=== PATIENT | male | born 1970 | race Asian ===

== ENCOUNTER 2018-01-20 18:33 | Emergency (ER) | payer OTHER ==
[~2018-01-20] VITALS: Ht 157.5 cm; Wt 59.0 kg
[2018-01-20 19:43] VITALS: BP 124/79
[2018-01-20] MEDS ORDERED: AMOX1TAB61 PO (20:56)
--- NOTE | 2018-01-20 20:56 | PHYS DOC ---
Past Medical History Past Medical History: No Pertinent History Past Surgical History: No Surgical History Alcohol Use: None Drug Use: None Adult General Chief Complaint Chief Complaint: COUGH HPI HPI Patient is a 47 year old male who presents to the emergency room today with complaints of a cough with some yellow mucus produced for the last 2 weeks. He also reports feeling hot, chills, body aches, and a sore throat. He denies any nausea or vomiting. Denies any medical or social history, he is not allergic to any medications and is not currently taking any medications Review of Systems Review of Systems Constitutional: Reports fatigue, hot flashes, and chills [] HENT: Reports nasal congestion, runny nose, and sore throat Respiratory: Denies shortness of breath or wheezing, reports productive cough with yellow sputum at times [] Cardiovascular: Denies chest pain GI: Denies abdominal pain, nausea, vomiting, or diarrhea [] Integument: Denies rash or skin lesions [] Neurologic: Denies focal weakness or sensory changes, reports headache and sinus pressure All other systems were reviewed and found to be within normal limits, except as documented in this note. Allergies Allergies Allergies Coded Allergies Type Severity Reaction Last Updated Verified No Known Drug Allergies 01/20/18 No Physical Exam Physical Exam Constitutional: Well developed, well nourished, no acute distress, non-toxic appearance. [] HENT: Normocephalic, atraumatic, bilateral external ears normal, oropharynx moist, thick yellow post nasal drainage. mild erythema of posterior pharynx, no oral exudates, nose normal. [] Eyes: PERRLA, EOMI, conjunctiva normal, no discharge, allergic shiners bilat [] Neck: Normal range of motion, no tenderness, supple, no stridor. [] Cardiovascular:Heart rate regular rhythm, no murmur [] Lungs & Thorax: Bilateral breath sounds clear to auscultation [] Skin: Warm, dry, no erythema, no rash. [] Extremities: No cyanosis, no clubbing, ROM intact, Neurologic: Alert and oriented X 3, normal motor function, normal sensory function, no focal deficits noted. [] Psychologic: Affect normal, judgement normal, mood normal. [] Current Patient Data Vital Signs Vital Signs Date Time Temp Pulse Resp B/P (MAP) Pulse Ox O2 Delivery O2 Flow Rate FiO2 01/20/18 19:43 98.3 88 20 124/79 (94) 97 Room Air 98.3 EKG EKG [] Radiology/Procedures Radiology/Procedures cxr negative read by Dr. Travis[] Course & Med Decision Making Course & Med Decision Making Pertinent Labs and Imaging studies reviewed. (See chart for details) Pt is a 47 year old male with complaints of a productive cough, tactile fever, chills, body aches, and sore throat. VSS, clinically he appears as sinusitis and allergic rhinitis. Treated as such. CXR negative. Prescription for augmentin 875 written and pt encouraged to take OTC allergy medication. Patient and verbalized an understanding of home care, medications, follow-up, and return to ED instructions and was in agreement with the plan of care. [] Dragon Disclaimer Dragon Disclaimer This electronic medical record was generated, in whole or in part, using a voice recognition dictation system. Departure Departure Impression: Primary Impression: Sinusitis, acute maxillary Additional Impression: Allergic rhinitis Disposition: HOME, SELF-CARE Condition: STABLE Referrals: UNKNOWN PCP NAME (PCP) Patient Instructions: Allergic Rhinitis, Sinusitis, [id number] Additional Instructions: Fill prescription(s) and use as directed. Recommend over the counter Claritin, Melody, or Zyrtec for relief of allergy symptoms. Cool mist humidifier in room at bedtime. Tylenol or ibuprofen prn pain/fever. Increase clear fluids. Avoid triggers such as smoke, fragrance, dust, and pollen. May take OTC cough suppressants as needed. Follow-up with your primary care doctor in 1-2 days, return to the emergency room if your symptoms worsen. Scripts Amoxicillin/Potassium Clav (AUGMENTIN 875-125 TABLET) 1 Each Tablet 1 TAB PO BID, #14 TAB Prov: LORETTA GAMBINO [employer] 01/20/18 Problem Qualifiers LORETTA GAMBINO [employer]UC[employer] TE[employer] Jan 20, 2018 20:56
--- NOTE | 2018-01-21 04:00 | RAD ---
CHEST PA LATERAL History: COUGH X 2 WEEKS Comparison: None. Findings: The cardiomediastinal silhouette is normal. Pulmonary vasculature is normal. The lungs are clear. No pleural effusion or pneumothorax is seen. There is no acute bone abnormality. IMPRESSION: No acute cardiopulmonary process. Electronically signed by: Baldev Coe MD (01/21/2018 3:57 AM) [facility]
== END 2018-01-20 21:05 | disposition home or self-care (01) ==
LOC: ER 18:33 → EDBD 18:33 → ER 21:05
DX: J01.00 Acute maxillary sinusitis, unspecified (principal); J30.9 Allergic rhinitis, unspecified
CPT/HCPCS: 71046; 99284